=== PATIENT | male | born 1990 | race Caucasian/White ===

== ENCOUNTER → 2017-11-27 | Outpatient (CLI) | payer OTHER ==
--- NOTE | 2017-11-27 15:49 | DIAGNOSTIC IMAGING REPORT ---
LEFT ANKLE 3 VIEWS HISTORY: Left ankle pain. COMPARISON: None. FINDINGS: There is no fracture or dislocation. Mild anterior soft tissue swelling. No radiopaque foreign bodies. Well-corticated ossific density at the dorsal aspect of the navicular bone suggests an old fracture. IMPRESSION: No acute fracture or dislocation within the left ankle. Electronically signed by: Arnav Recinos M.D. 11/27/2017 3:47 PM Dictated Date/Time: 11/27/2017 3:45 PM
--- NOTE | 2017-11-27 15:58 | DIAGNOSTIC IMAGING REPORT ---
L FOOT MIN 3 VIEWS ROUTINE HISTORY: 27 years-old Male L FOOT/ANKLE acute left foot and ankle pain status post fall COMPARISON: Left ankle radiographs of same day TECHNIQUE: 3 views of the left foot FINDINGS: Bone mineralization is within normal limits. No acute fracture, dislocation, significant degenerative changes or opaque foreign body. Soft tissues are within normal limits. Minimal marginal spurring about the dorsal navicular. IMPRESSION: No acute fracture or dislocation. The above report was generated using voice recognition software. It may contain grammatical, syntax or spelling errors. Electronically signed by: Karlos Mabry M.D. 11/27/2017 3:57 PM Dictated Date/Time: 11/27/2017 3:54 PM
== END | disposition home or self-care (01) ==
LOC: C.RAD1850 15:22
PROVIDERS: ATTEND Nurse Practitioner Family
DX: M79.672 Pain in left foot (principal)

== ENCOUNTER 2019-03-05 13:46 | Observation (INO) ==
--- OUTSIDE RECORDS SUMMARY | 2019-03-05 13:49 | External Medical Summary | Continuity of Care Document ---
:1990 Author Name Sharlene Henry, Provider Address Unavailable Unavailable , Care Team Providers Name Role Phone Unavailable Unavailable Unavailable PCP, UNKNOWN Unavailable Unavailable Unavailable Unavailable Unavailable Problems Varicose veins (454.9) (I83.90) Acute appendicitis (540.9) (K35.80) Epididymitis (604.90) (N45.1) Allergies and Adverse Reactions Hydrocodone-Acetaminophen CAPS (Allergy) Reaction: Hives Medications No Reported Medications , M.D. Refills: 0 Procedures History of Appendectomy Status: Complete d Immunizations Immunizations not documented Plan of Treatment Planned Observations Planned Goals not documented Results No Known Results Results not documented
[2019-03-05] MEDS ORDERED: SODIUM CHLORIDE 0.9% 1000ML 1,000 ML IV ONE ×2 (14:10→15:30)
[2019-03-05] MEDS ORDERED: FAMOTIDINE 20MG/5ML IV PUSH IV STA (14:10)
[2019-03-05 14:26] LABS: Basophils # (auto) 0.03 K/uL (0-0.2); Basophils % (auto) 0.4 %; Eosinophils # (auto) 0.02 K/uL (0-0.5); Eosinophils % (auto) 0.3 %; Hematocrit (blood only) 40.6 % (42-52); Hemoglobin 14.5 g/dL (14.0-18.0); Immature Granulocytes # (auto) 0.01 K/uL (0.00-0.02); Immature Granulocytes % (auto) 0.1 %; Lymphocytes # (auto) 1.31 K/uL (1.2-3.4); Lymphocytes % (auto) 16.6 %; Mean Corpuscular Hgb Conc 35.7 g/dL (32-36); Mean Corpuscular Volume 84.8 fL (80-100); Monocytes # (auto) 0.68 K/uL (0.11-0.59); Monocytes % (auto) 8.6 %; Neutrophils # (auto) 5.83 K/uL (1.4-6.5); Platelet Count 149 K/uL (130-400); RDW Coefficient of Variation 12.5 % (11.5-14.5); RDW Standard Deviation 38.9 fL (36.4-46.3); Red Blood Count 4.79 M/uL (4.7-6.1); White Blood Count 7.88 K/uL (4.8-10.8)
[2019-03-05 14:53] LABS: Albumin Level 4.1 gm/dl (3.4-5.0); BUN Creatinine Ratio 9.5 (10-20); Calcium 9.1 mg/dl (8.5-10.1); Est GFR (African American) 104.2; Est GFR (Non-African American) 89.9; Magnesium 2.2 mg/dl (1.8-2.4); Potassium 3.8 mmol/L (3.5-5.1)
--- NOTE | 2019-03-05 15:03 | XRay Report ---
PA CHEST RADIOGRAPH AND UPRIGHT AND SUPINE AP RADIOGRAPHS OF THE ABDOMEN CLINICAL HISTORY: Pain, nausea and vomiting. COMPARISON STUDY: CT of the abdomen and pelvis February 16, 2013. FINDINGS: Lung volumes are normal. Lungs are clear. There is no pneumothorax or pleural effusion. Ca rdiac size is normal. Mediastinal contours are normal. There is no free air. Postoperative findings w ithin the medial base of the cecum are likely from previous appendectomy. The bowel gas pattern is no rmal. IMPRESSION: 1. No free air or evidence of bowel obstruction. 2. No acute cardiopulmonary findings. Electronically signed by: Danish Rooney M.D. 03/05/2019 3:01 PM
[2019-03-05 15:05] LABS: Bilirubin,Total 0.8 mg/dl (0.2-1); Total Protein 8.1 gm/dl (6.4-8.2); Troponin I 0.066 ng/ml (0-0.045)
[2019-03-05 15:15] LABS: Lyme Ab IgG w/WB Rflx Negative (Negative); Lyme Ab IgM w/WB Rflx Negative (Negative)
[2019-03-05] MEDS ORDERED: ONDANSETRON INJ 2 MG/ML 2 ML VIAL IV STA (15:30)
--- NOTE | 2019-03-05 16:13 | Emergency Department Note ---
Entered by Louise Wallace acting as a scribe for AllisonvicAnaismesha Jones DO History of Present Illness General Chief complaint: Chest Pain Stated complaint: VOMITING,CHEST PAIN Time Seen by Provider: 03/05/19 13:58 Source: patient History of Present Illness Provider complaint: Vomiting Onset (ago): day(s) 4 Location: chest Pain Consistency: + constant Maximum Pain Intensity: 5 Quality: + other (vomiting, chest on fire) Associated symptoms: + denies other symptoms (hematochezia), + fever/chills, + nausea/vomiting and + other (cannot keep any food or beverage down, blood in vo rei, diarrhea) The patient is a 28 year old male who presents to the ED with constant vomiting that began 4 days ago. The patient states that he cannot keep anything down and has been vomiting up to 10 times per day. The patient notes that he noticed blood in his vomit once last night. He has not had any since. No better or sour taste in his throat. No history of reflux or ulcers. The patient states that he has also had chest pain which started 2 days ago. The patient states th at the chest pain is present mostly when he is vomiting and it feels like his chest is on fire. The patient states that he is also having diarrhea but there is no hematochezia. The patient notes that he has fever and chills. No other sick contacts, no recent travel. Patient states he did go [place] and prior to the onset of this. Does not think he had bad food. Has not noticed any abnormal tick or insect bites. No prior history of Lyme disease. Patient concerned about dehydration and evolving left chest pain. Patient denies any palpitations or trouble breathing. No other cough or cold symptoms. Home Medications Home Medications Medication Instructions Recorded Confirmed Type No Known Home Medications 03/05/19 03/05/19 History Allergies Allergy/AdvReac Type Severity Reaction Status Date / Time hydrocodone Allergy Severe RASH Verified 03/05/19 14:46 Past Med/Surg History Medical History No significant past medical history (Chronic) Surgical History History of appendectomy (Chronic) Family History Other Dementia Social History Preferred Language: Ukrainian Communication Ability: Effective Provider Education Specialist Required: No Beliefs That Will Affect Care: None Current Living Situation: Family Other Information That Helps Us Care for You: No Feels Safe at Home: Yes Safety Concerns: Feels Safe At This Time Smoking Status: Former smoker Do You Dip or Chew Tobacco: Yes Hx Alcohol Use: No Hx Substance Use: No Review of Systems See HPI for pertinent positives & negatives. and A total of 10 systems reviewed and were otherwise negative Physical Exam Vital Signs Vital Signs - 24 hr 03/05/19 15:48 Pulse Rate [Finger] 67 Respiratory Rate 19 Blood Pressure [Right Arm] 155/98 H Blood Pressure Mean [Right Arm] 117 Pulse Oximetry 99 Oxygen Delivery Method Room Air GENERAL: alert, well appearing, well nourished, no distress, non-toxic EYE EXAM: normal conjunctiva, PERRL and EOM's grossly intact OROPHARYNX: no exudate, no erythema, lips, buccal mucosa, and tongue normal and mucous membranes are moist, no tonsillar hypertrophy, no blood in the posterior oropharynx NECK: supple, no nuchal rigidity, no adenopathy, non-tender LUNGS: Clear to auscultation. Normal chest wall mechanics, no w/r/r HEART: no murmurs, S1 normal and S2 normal ABDOMEN: abdomen soft, non-tender, normo-active bowel sounds, no masses, no rebound or guarding. BACK: Back is symmetrical on inspection and there is no deformity, no midline tenderness, no CVA tenderness. SKIN: no rashes and no bruising, no petechiae UPPER EXTREMITIES: upper extremities are grossly normal. FROM, nml pulses b/l. LOWER EXTREMITIES: No pitting edema. FROM, nml pulses b/l. NEURO EXAM: Normal sensorium, cranial nerves II-XII grossly intact, normal speech, no gross weakness of arms, no gross weakness of legs. Course 1403: Past medical records reviewed. The patient was evaluated in room A4. A complete history and physical exam was performed. 1615: I discussed the patient's case with Marcelina Agarwal PA-C, [facility]. She will evaluate the patient for further management. Consultations Consultation #1: I discussed the patient's case with Marcelina Agarwal PA-C, [facility]. She will evaluate the patient for further management. Time: 16:15 Administered Medications Acetaminophen (Tylenol) 650 mg PO Q4H PRN PRN Reason: Pain or Fever Stop: 04/04/19 17:43 Last Admin: 03/05/19 23:30 Dose: 650 mg Documented by: [id number] Admin: 03/05/19 18:20 Dose: 650 mg Documented by: [id number] Discontinued Medications Famotidine (Pepcid 20mg Iv Push) 20 mg IV ONE STA Stop: 03/05/19 14:11 Last Admin: 03/05/19 14:23 Dose: 20 mg Documented by: [id number] Sodium Chloride (Nss 1000ml) 1,000 mls @ 999 mls/hr IV .Q1H1M ONE Stop: 03/05/19 15:10 Last Infusion: 03/05/19 15:37 Dose: 0 mls/hr Documented by: [id number] Admin: 03/05/19 14:23 Dose: 999 mls/hr Documented by: [id number] Sodium Chloride (Nss 1000ml) 1,000 mls @ 999 mls/hr IV .Q1H1M ONE Stop: 03/05/19 16:30 Last Infusion: 03/05/19 16:48 Dose: 0 mls/hr Documented by: [id number] Admin: 03/05/19 15:45 Dose: 999 mls/hr Documented by: [id number] Sodium Chloride (Nss 1000ml) 1,000 mls @ 100 mls/hr IV .Q10H AVTAR Stop: 03/06/19 13:43 Last Admin: 03/06/19 04:07 Dose: 100 mls/hr Documented by: [id number] Infusion: 03/06/19 04:07 Dose: 100 mls/hr Documented by: [id number] Admin: 03/05/19 18:20 Dose: 100 mls/hr Documented by: [id number] Ondansetron HCl (Zofran) 4 mg IV NOW STA Stop: 03/05/19 15:31 Last Admin: 03/05/19 15:43 Dose: 4 mg Documented by: [id number] Medical Decision Making Differential Diagnosis Differential diagnosis: Etiologies such as shingles, musculoskeletal pain, pericarditis, myocarditis, cardiac ischemia, pericardial tamponade, pneumonia, pneumothorax, pleural effusion, hemothorax, pleurisy, aortic pathology, pulmonary embolism, intra- abdominal process, gastroenteritis, food borne illness, infections, appendicitis, diverticulitis, inflammatory bowel disease, obstruction, GI bleed, biliary pathology, cardiac process, intracranial process, as well as others were entertained. Medical Records Attestation: I reviewed the patient's medical records. Home Medications Current Medication List: was personally reviewed by me Laboratory Data Attestation: I reviewed the patient's lab results. Result diagrams: 03/06/19 05:48 03/06/19 01:49 Lab Results 03/05/19 03/05/19 03/05/19 Range/Units 14:16 14:16 14:16 WBC 7.88 (4.8-10.8) K/uL RBC 4.79 (4.7-6.1) M/uL Hgb 14.5 (14.0-18.0) g/dL Hct 40.6 L (42-52) % MCV 84.8 (80-100) fL MCH 30.3 (25-34) pg MCHC 35.7 (32-36) g/dL RDW Std Deviation 38.9 (36.4-46.3) fL RDW Coeff of Mima 12.5 (11.5-14.5) % Plt Count 149 (130-400) K/uL MPV 10.0 (7.4-10.4) fL Immature Gran % (Auto) 0.1 % Neut % (Auto) 74.0 % Lymph % (Auto) 16.6 % Chester % (Auto) 8.6 % Eos % (Auto) 0.3 % Baso % (Auto) 0.4 % Immature Gran # (Auto) 0.01 (0.00-0.02) K/uL Neut # (Auto) 5.83 (1.4-6.5) K/uL Lymph # (Auto) 1.31 (1.2-3.4) K/uL Chester # (Auto) 0.68 H (0.11-0.59) K/uL Eos # (Auto) 0.02 (0-0.5) K/uL Baso # (Auto) 0.03 (0-0.2) K/uL Sodium 134 L (136-145) mmol/L Potassium 3.8 (3.5-5.1) mmol/L Chloride 100 (98-107) mmol/L Carbon Dioxide 28 (21-32) mmol/L Anion Gap 6.0 (3-11) BUN 11 (7-18) mg/dl Creatinine 1.11 (0.6-1.4) mg/dl Est Cr Clr Drug Dosing 111.0 ml/min Est GFR ( Amer) 104.2 Est GFR (Non-Af Amer) 89.9 BUN/Creatinine Ratio 9.5 L (10-20) Glucose 107 H (70-99) mg/dl Calcium 9.1 (8.5-10.1) mg/dl Magnesium 2.2 (1.8-2.4) mg/dl Total Bilirubin 0.8 (0.2-1) mg/dl AST 32 (15-37) U/L ALT 44 (12-78) U/L Alkaline Phosphatase 75 (45-117) U/L Troponin I 0.066 H* (0-0.045) ng/ml NT-Pro-B Natriuret Pep 55 (0-450) pg/ml Total Protein 8.1 (6.4-8.2) gm/dl Albumin 4.1 (3.4-5.0) gm/dl Globulin 4.0 (2.5-4.0) gm/dl Albumin/Globulin Ratio 1.0 (0.9-2) Lipase 111 (73-393) U/L Lyme Disease IgG Ab Negative (Negative) Lyme Disease IgM Ab Negative (Negative) Imaging Data Radiologist's Impression: Radiology results as stated below per my review and the radiologist's interpretation: PA CHEST RADIOGRAPH AND UPRIGHT AND SUPINE AP RADIOGRAPHS OF THE ABDOMEN CLINICAL HISTORY: Pain, nausea and vomiting. COMPARISON STUDY: CT of the abdomen and pelvis February 16, 2013. FINDINGS: Lung volumes are normal. Lungs are clear. There is no pneumothorax or pleural effusion. Cardiac size is normal. Mediastinal contours are normal. There is no free air. Postoperative findings within the medial base of the cecum are likely from previous appendectomy. The bowel gas pattern is normal. IMPRESSION: 1. No free air or evidence of bowel obstruction. 2. No acute cardiopulmonary findings. Electronically signed by: Danish Rooney M.D. 03/05/2019 3:01 PM ECG Data Attestation: I personally reviewed and interpreted this ECG as follows: Indication: vomiting Rate (beats per minute): 68 Rhythm: normal sinus Findings: + other (normal axis, normal interval); no PAC, no PVC, no ST depression, no ST elevation, no acute ischemic change and no ectopy Blood Pressure Blood Pressure Findings: Normal blood pressure Blood Pressure Disposition: did not require urgent referral MDM Narrative Patient here well-appearing despite complaints and reported feeling markedly improved after 2 L of IV fluids, anti-medics and Pepcid in the emergency room. Patient's labs reassuring with the exception of an elevated troponin. Likely stress related to GI illness, however given elevation, case discussed with hospitalist for additional monitoring, trending of troponin, and inpatient evaluation. Patient was made aware of all results and was in agreement with plan. Patient hemodynamically stable throughout. Patient did complain of left- sided chest pain, however no trouble breathing, no palpitations. I do not suspect PE, patient could be ruled out using PERC criteria. Initial hypoxia at 78% I feel is an error as patient otherwise was in the upper 90s on room air with no increased work of breathing no reported trouble breathing throughout the rest of his observation in the emergency room. I do not suspect ACS, PE, dissection, tamponade, effusion, occult pneumonia. No evidence of renal dysfunction or acute electrolyte abnormality. I do not suspect bacteremia/sepsis. I do not suspect bowel obstruction, perforation. Patient likely with partial Milady-Read tear due to recurrent vomiting as he did have a single episode of noticing a small amount of blood in his emesis. I do not suspect occult PUD. I do not suspect colitis or mesenteric ischemia. Impression & Plan Atypical chest pain, Nausea & vomiting, Diarrhea, Dehydration, Elevated troponin Discharge Plan Visit Data *Final* Discharge Date/Time: 03/05/19 17:26 Chief Complaint: Chest Pain Stated Complaint: VOMITING,CHEST PAIN ED Provider: Anais Lyons Discharge Problem: Atypical chest pain, Nausea & vomiting, Diarrhea, Dehydration, Elevated troponin Patient Disposition: Admitted As Inpatient Condition: Good Discharge Instructions Interventions: ED Discharge Assessment Last Done: 03/05/19 17:26 Discharge Problem: Nausea & vomiting Qualifiers: Vomiting type: unspecified Vomiting Intractability: non-intractable Qualified Code(s): R11.2 - Nausea with vomiting, unspecified Diarrhea Qualifiers: Diarrhea type: unspecified type Qualified Code(s): R19.7 - Diarrhea, unspecified The scribe's documentation has been prepared under my direction and personally reviewed by me in its entirety. I confirm that the note above accurately reflects all work, treatment, procedures, and medical decision making performed by me.
--- NOTE | 2019-03-05 16:55 | History & Physical Report ---
Date of Service March 05, 2019 Assessment & Plan (1) Gastroenteritis: Pt presents with C/O N/V x 4 days with reported 10 episodes daily. Diarrhea x 2 days with 2 episodes daily. Reported fever at symptom onset. In ER pt afebrile, P: 78, R: 16, BP: 155/98, 99% on RA. No leukocytosis, H/H: 14.5/40, Na: 134, K: 3.8, ma.2, BUN: 11, Cr: 1.1, GFR: 89, Lipase: WNL In ER had 2 L NSS, zofran, pepcid with reported improvement of symptoms. Probable viral gastroenteritis -IVF -Antiemetics prn -Clear liquids to start and see how tolerates -If increased diarrhea will consider C-Diff, stool studies -Monitor CBC, BMP (2) Chest pain: C/O left anterior chest pain x 2 days. CP worse after vomiting, described as burning Triage O2 sat was listed at 78%, this is probable error, During entire ER course O2 sats 98-100% on RA. Denies SOB, pleuritic CP. Negative Wells and PERC criteria for PE. CP is reproducible on exam. EKG: NSR, rate 68, nonspecific ST changes DDX: musculoskeletal etiology, GERD, esophagitis/gastritis -Trend troponin -If increased troponin will order echo DVT Prophylaxis -Low risk, ambulate Pt does not have PCP for routine care Pt was seen and care coordinated with Dr Trejo. See addendum History of Present Illness Chief Complaint: N/V/D, CP Primary Care Provider: NO PCP Pt is 28 y/o M without significant PMH presented to ER with c/o N/V/D x 4 days. Patient reports is been having approximately 10 episodes of vomiting daily over the past 4 days. States he has been unable to eat or drink. Yesterday had 2 episodes of diarrhea this morning 2 episodes of diarrhea with no further diarrhea yet today. Reports fever symptoms at symptom onset 4 days ago. 2 days ago started with left-sided chest pain described as burning, worse after vomiting. Patient reports had a cough for the last couple of days. Reports vomiting/coughing mucus. Denies shortness of breath. Reports some epigastric discomfort started after vomiting. States 2 days ago thought there may be some blood in vomit has not noticed any blood since. Reports decreased urination. Took Tylenol denies any other prior treatment. Reports drinks 2 L of Mountain Dew a day. Denies NSAID use. Stopped smoking and drinking 3 years ago. Denies drug use. Patient denies eating undercooked foods, drinking well water, recent antibiotic use, ill contacts. Denies any injury or trauma, h/o DVT/PE. Denies diaphoresis, hematochezia, melena, LEAHY, dizziness, syncope, vision changes, neck pain, orthopnea, palpitations, hemoptysis, sore throat, choking, otalgia, rhinorrhea, flank pain, back pain, paresthesias, weakness, extremity weakness, extremity edema, rashes, hematuria. Allergies Allergy/AdvReac Type Severity Reaction Status Date / Time hydrocodone Allergy Severe RASH Verified 03/05/19 14:46 Home Medications Home Medications Medication Instructions Recorded Confirmed Type No Known Home Medications 03/05/19 03/05/19 History Past Med/Surg History Medical History No significant past medical history (Chronic) Surgical History History of appendectomy (Chronic) Family History Other Dementia Social History Preferred Language: Sinhala Communication Ability: Effective Biztalk Consultant Required: No Beliefs That Will Affect Care: None Current Living Situation: Family Other Information That Helps Us Care for You: No Feels Safe at Home: Yes Safety Concerns: Feels Safe At This Time Smoking Status: Former smoker Do You Dip or Chew Tobacco: Yes Hx Alcohol Use: No Hx Substance Use: No Review of Systems Review of Systems: All systems reviewed & are unremarkable except as noted in HPI & below Physical Exam Physical Exam: General: no distress, WDWN Head: normocephalic, atraumatic Eyes: PERRL, EOM's intact, conjunctiva non-injected, anicteric ENT: normal inspection external ears, nose, mucous membranes mildly dry Neck: supple, trachea midline, non-tender Lungs: clear, no respiratory distress, no wheezing/rhonchi/rales CV: RRR, no murmur, Chest wall: +tenderness to palpation left anterior chest, no rashes noted. no pretibial edema Abd: normal BS, soft, mild tenderness to palpation epigastric, no other abdominal tenderness to palpation Ext: no cyanosis, no calf tenderness Neuro: A&O x 3, no focal deficits noted, normal affect Skin: warm, dry Results & Data Vital Signs (Past 12 Hours) Vital Signs Temp Pulse Pulse Resp BP BP Pulse Ox 03/05/19 15:48 67 19 155/98 H 99 03/05/19 13:49 37.1 C 78 16 151/98 H 78 L Laboratory Results Short CBC 03/05/19 Range/Units 14:16 WBC 7.88 (4.8-10.8) K/uL Hgb 14.5 (14.0-18.0) g/dL Hct 40.6 L (42-52) % Plt Count 149 (130-400) K/uL BMP 03/05/19 14:16 Sodium 134 L Potassium 3.8 Chloride 100 Carbon Dioxide 28 BUN 11 Creatinine 1.11 Glucose 107 H Calcium 9.1 Cardiac Enzymes 03/05/19 Range/Units 14:16 Troponin I 0.066 H* (0-0.045) ng/ml Liver Function 03/05/19 Range/Units 14:16 Total Bilirubin 0.8 (0.2-1) mg/dl AST 32 (15-37) U/L ALT 44 (12-78) U/L Alkaline Phosphatase 75 (45-117) U/L Albumin 4.1 (3.4-5.0) gm/dl Diagnostic Findings CXR/ABD XRAY: IMPRESSION: 1. No free air or evidence of bowel obstruction. 2. No acute cardiopulmonary findings. Supervising Physician Co-Signing Physician Notes Attending addendum: Patient was seen and examined in the emergency room He has been complaining of fever followed by nausea vomiting and diarrhea since Saturday last Clinical bowel about 10 times yesterday and has been feeling weak and tired Denies any dizziness and/or fever On examination Anxious in the emergency room otherwise no acute symptoms Hemodynamically stable without tachycardia and a fever Chest-clear to auscultate bilaterally Heart-S1-S2, regular Abdomen-soft, tender in the epigastrium, no tenderness in the renal angles, bowel sounds present Extremities-negative 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 No focal sensory or motor deficit Admission labs and imaging studies reviewed KUB-unremarkable EKG-NSR rate of 71/min Troponin minimally elevated at 0.06 Likely has viral gastroenteritis Agree with assessment plan as outlined above by TO Chatman DR
[2019-03-05] MEDS ORDERED: ONDANSETRON INJ 2 MG/ML 2 ML VIAL IV PRN (17:44)
[2019-03-05] MEDS: SODIUM CHLORIDE 0.9% 1000ML 1,000 ML IV SCH (18:20)
[2019-03-05] MEDS: ACETAMINOPHEN 325 MG TAB PO PRN ×2 (18:20→23:30)
[2019-03-06 02:27] LABS: BUN Creatinine Ratio 8.1 (10-20); Calcium 8.9 mg/dl (8.5-10.1); Creatinine Clr Calc Pharmacy 109.2 ml/min; Est GFR (African American) 112.7; Est GFR (Non-African American) 97.3; Potassium 3.9 mmol/L (3.5-5.1)
[2019-03-06 02:39] LABS: Troponin I 0.085 ng/ml (0-0.045)
[2019-03-06] MEDS: SODIUM CHLORIDE 0.9% 1000ML 1,000 ML IV SCH (04:07)
[2019-03-06 06:03] LABS: Hematocrit (blood only) 36.4 % (42-52); Hemoglobin 12.8 g/dL (14.0-18.0); Mean Corpuscular Hgb Conc 35.2 g/dL (32-36); Mean Corpuscular Volume 85.4 fL (80-100); Mean Platelet Volume 10.2 fL (7.4-10.4); Platelet Count 126 K/uL (130-400); RDW Coefficient of Variation 12.8 % (11.5-14.5); RDW Standard Deviation 39.8 fL (36.4-46.3); Red Blood Count 4.26 M/uL (4.7-6.1); White Blood Count 5.15 K/uL (4.8-10.8)
--- NOTE | 2019-03-06 14:10 | Hospitalist Progress Note ---
Date of Service March 06, 2019 Assessment & Plan (1) Gastroenteritis: Pt presents with C/O N/V x 4 days with reported 10 episodes daily. Diarrhea x 2 days with 2 episodes daily. Reported fever at symptom onset. In ER pt afebrile, P: 78, R: 16, BP: 155/98, 99% on RA. No leukocytosis, H/H: 14.5/40, Na: 134, K: 3.8, ma.2, BUN: 11, Cr: 1.1, GFR: 89, Lipase: WNL In ER had 2 L NSS, zofran, pepcid with reported improvement of symptoms. Probable viral gastroenteritis Clinically a lot better to Tolerating diet and denies any symptoms Labs unremarkable - (2) Chest pain: C/O left anterior chest pain x 2 days. CP worse after vomiting, described as burning Triage O2 sat was listed at 78%, this is probable error, During entire ER course O2 sats 98-100% on RA. Denies SOB, pleuritic CP. Negative Wells and PERC criteria for PE. CP is reproducible on exam. EKG: NSR, rate 68, nonspecific ST changes DDX: musculoskeletal etiology, GERD, esophagitis/gastritis -Serial troponins unremarkable -No EKG changes -Echocardiogram normal DVT Prophylaxis -Low risk, ambulate Pt does not have PCP for routine care He will be discharged home this afternoon He willmake an appointment with his primary care physician within 1 week Subjective 03/06 Patient was seen and examined in medical floor He denies any symptoms today He has been tolerating diet Hemodynamically stable wants to go home Review of Systems Review of Systems: All systems reviewed and are unremarkable except as noted below Physical Exam Physical Exam: No apparent distress at rest Constitutional: well developed, well nourished and + well hydrated Eyes: PERRL, conjunctivae normal, anicteric sclerae ENMT: external ear and nose normal, oropharynx normal Neck: trachea midline, no thyromegaly Respiratory: normal respiratory effort Auscultation: lungs clear to au scultation bilaterally Cardiovascular: Rate/Rhythm: regular rate and regular rhythm Heart Sounds: no murmur Gastrointestinal (Abdomen): Inspection/Auscultation: abdomen normal to inspection and normal bowel sounds Percussion/Palpation: abdomen soft; abdomen nontender Neurologic: patellar DTR's 2+ bilat, sensation intact Lymphatic: no cervical or axillary lymphadenopathy Results & Data Vital Signs (Past 12 Hours) Vital Signs Temp Pulse Pulse Resp BP Pulse Ox 03/06/19 11:18 36.8 C 68 18 123/81 99 03/06/19 07:41 60 03/06/19 07:25 36.4 C L 72 19 120/81 98 03/06/19 04:00 36.4 C L 70 21 122/77 98 Laboratory Results Short CBC 03/05/19 03/06/19 Range/Units 14:16 05:48 WBC 7.88 5.15 (4.8-10.8) K/uL Hgb 14.5 12.8 L (14.0-18.0) g/dL Hct 40.6 L 36.4 L (42-52) % Plt Count 149 126 L (130-400) K/uL BMP 03/05/19 03/06/19 14:16 01:49 Sodium 134 L 137 Potassium 3.8 3.9 Chloride 100 105 Carbon Dioxide 28 30 BUN 11 8 Creatinine 1.11 1.04 Glucose 107 H 112 H Calcium 9.1 8.9 Cardiac Enzymes 03/05/19 03/05/19 03/06/19 Range/Units 14:16 19:51 01:49 Troponin I 0.066 H* 0.112 H* 0.085 H* (0-0.045) ng/ml Liver Function 03/05/19 Range/Units 14:16 Total Bilirubin 0.8 (0.2-1) mg/dl AST 32 (15-37) U/L ALT 44 (12-78) U/L Alkaline Phosphatase 75 (45-117) U/L Albumin 4.1 (3.4-5.0) gm/dl Medications Administered Current Inpatient Medications Acetaminophen (Tylenol) 650 mg PO Q4H PRN PRN Reason: Pain or Fever Stop: 04/04/19 17:43 Last Admin: 03/05/19 23:30 Dose: 650 mg Documented by: Ondansetron HCl (Zofran) 4 mg IV Q6H PRN PRN Reason: Nausea Stop: 04/04/19 17:43
--- NOTE | 2019-03-06 17:38 | Discharge Summary ---
Date of Service March 06, 2019 Admission HPI Per Admitting Provider Pt is 28 y/o M without significant PMH presented to ER with c/o N/V/D x 4 days. Patient reports is been having approximately 10 episodes of vomiting daily over the past 4 days. States he has been unable to eat or drink. Yesterday had 2 episodes of diarrhea this morning 2 episodes of diarrhea with no further diarrhea yet today. Reports fever symptoms at symptom onset 4 days ago. 2 days ago started with left-sided chest pain described as burning, worse after vomiting. Patient reports had a cough for the last couple of days. Reports vomiting/coughing mucus. Denies shortness of breath. Reports some epigastric discomfort started after vomiting. States 2 days ago thought there may be some blood in vomit has not noticed any blood since. Reports decreased urination. Took Tylenol denies any other prior treatment. Reports drinks 2 L of Mountain Dew a day. Denies NSAID use. Stopped smoking and drinking 3 years ago. Denies drug use. Patient denies eating undercooked foods, drinking well water, recent antibiotic use, ill contacts. Denies any injury or trauma, h/o DVT/PE. Denies diaphoresis, hematochezia, melena, LEAHY, dizziness, syncope, vision changes, neck pain, orthopnea, palpitations, hemoptysis, sore throat, choking, otalgia, rhinorrhea, flank pain, back pain, paresthesias, weakness, extremity weakness, extremity edema, rashes, hematuria. Admission Exam Per Admitting Provider Physical Exam: General: no distress, WDWN Head: normocephalic, atraumatic Eyes: PERRL, EOM's intact, conjunctiva non-injected, anicteric ENT: normal inspection external ears, nose, mucous membranes mildly dry Neck: supple, trachea midline, non-tender Lungs: clear, no respiratory distress, no wheezing/rhonchi/rales CV: RRR, no murmur, Chest wall: +tenderness to palpation left anterior chest, no rashes noted. no pretibial edema Abd: normal BS, soft, mild tenderness to palpation epigastric, no other abdominal tenderness to palpation Ext: no cyanosis, no calf tenderness Neuro: A&O x 3, no focal deficits noted, normal affect Skin: warm, dry Principal Diagnosis Viral gastroenteritis, chest pain-no ACS and normal echocardiogram Discharge Exam Constitutional well developed, well nourished and + well hydrated Eyes PERRL, conjunctivae normal, anicteric sclerae ENMT external ear and nose normal, oropharynx normal Neck trachea midline, no thyromegaly Respiratory normal respiratory effort Auscultation: lungs clear to auscultation bilaterally Cardiovascular Rate/Rhythm: regular rate and regular rhythm Heart Sounds: no murmur Gastrointestinal (Abdomen) Inspection/Auscultation: abdomen normal to inspection and normal bowel sounds Percussion/Palpation: abdomen soft; abdomen nontender Neurologic patellar DTR's 2+ bilat, sensation intact Lymphatic no cervical or axillary lymphadenopathy Discharge Data Allergies Allergy/AdvReac Type Severity Reaction Status Date / Time hydrocodone Allergy Severe RASH Verified 03/05/19 14:46 Consultations 03/05/19 16:07 ED Decision to Admit Stat Hospital Course (1) Gastroenteritis: Pt presents with C/O N/V x 4 days with reported 10 episodes daily. Diarrhea x 2 days with 2 episodes daily. Reported fever at symptom onset. In ER pt afebrile, P: 78, R: 16, BP: 155/98, 99% on RA. No leukocytosis, H/H: 14.5/40, Na: 134, K: 3.8, ma.2, BUN: 11, Cr: 1.1, GFR: 89, Lipase: WNL In ER had 2 L NSS, zofran, pepcid with reported improvement of symptoms. Probable viral gastroenteritis Clinically a lot better to Tolerating diet and denies any symptoms Labs unremarkable - (2) Chest pain: C/O left anterior chest pain x 2 days. CP worse after vomiting, described as burning Triage O2 sat was listed at 78%, this is probable error, During entire ER course O2 sats 98-100% on RA. Denies SOB, pleuritic CP. Negative Wells and PERC criteria for PE. CP is reproducible on exam. EKG: NSR, rate 68, nonspecific ST changes DDX: musculoskeletal etiology, GERD, esophagitis/gastritis -Serial troponins unremarkable -No EKG changes -Echocardiogram normal DVT Prophylaxis -Low risk, ambulate Pt does not have PCP for routine care He will be discharged home this afternoon He willmake an appointment with his primary care physician within 1 week Total Time Total Time Spent Total Time Spent (In Minutes): 35 minutes Total Time Includes: Examination of the Patient, Discharge Planning, Medication Reconciliation and Communication With Other Providers Discharge Plan Discharge Items Patient Disposition: Home - Self-Care Reason For Visit: GASTROENTERITIS Discharge Diagnosis: Viral gastroenteritis, chest pain-no ACS and normal echocardiogram Condition: Good Discharge Goals: Decrease discomfort, Increase independence and Improve nutritional status Activity: Resume your previous activity Non-emergency contact: Primary Care Provider Call non-emergency contact if: you have any medication questions and your symptoms worsen Follow-up/Referrals: PCP,NO [Primary Care Provider] - (Will make an appointment with his primary care physician within 1 week) Diet: Regular Addtl Provider Instructions: Advised to drink plenty of fluids Prescriptions: No Action No Known Home Medications RF: 0 Stand-Alone Forms: [employer] [employer] [facility] [employer], Work/School Release (Inpt) Discharge Orders: Discharge Order (Routine); Ordered 03/06/19 Ordered By: Wai Trejo Admission Data Admit Date/Time: 03/05/19 16:49 Attending Provider: Wai Trejo Admit Provider: Wai Trejo Primary Care Provider: IVON RESENDIZ Other Providers: Wai Trejo Service: Telemetry Medical Other Interventions: Discharge Summary Assessment (RN) Last Done: 03/06/19 14:18 DC Date/Time DO NOT enter until pt leaves facility: 03/06/19 14:41
== END 2019-03-06 14:41 | disposition home or self-care (01) ==
LOC: 2N 13:46 → ED 13:46 → 2N 17:26